=== PATIENT | female | born 1985 | race Caucasian/White ===

== ENCOUNTER 2023-06-01 13:30 | Emergency (ER) | payer OTHER ==
[2023-06-01 13:34] VITALS: TEMP 97.8
[2023-06-01] MEDS ORDERED: KETOROLAC 15 MG/ML 1 ML VIAL IVP STA (14:04)
[2023-06-01] MEDS ORDERED: SODIUM CHLORIDE 0.9% 1,000 ML IV STA (14:04)
--- NOTE | 2023-06-01 14:04 | ED ---
Headache HPI - General Chief Complaint: Headache Stated Complaint: headpain Time Seen by Provider: 06/01/23 13:42 Source: patient, RN notes reviewed, old records reviewed Mode of arrival: ambulatory Limitations: no limitations - History of Present Illness Initial Comments: 38-year-old female presents to the emergency room with complaints of a cyst to right latter-day for the past 2 months. Was seen by a doctor and told that she should have it removed by dermatology but has not followed up. She states she now has a frontal headache from it. Denies any fevers. No vision changes. MD Complaint: headache -: days(s) (3) Onset Description: gradual Location: frontal Severity scale (1-10): 8 Quality: aching Consistency: constant Context: other (cyst right latter-day for 2 months) Treatments Prior to Arrival: none - Related Data Home Medications Medication Instructions Recorded Confirmed Sertraline [Zoloft] 50 mg PO DAILY 08/03/14 11/15/14 Atomoxetine HCl [Strattera] 60 mg PO QAM 11/14/14 11/15/14 Previous Rx's Medication Instructions Recorded Acetaminophen-Codeine 300-30mg 2 tab PO Q6H PRN #20 tablet 11/15/14 [Tylenol w/codeine #3] Allergies Allergy/AdvReac Type Severity Reaction Status Date / Time No Known Allergies Allergy Verified 06/01/23 13:34 Review of Systems ROS Statement: Those systems with pertinent positive or pertinent negative responses have been documented in the HPI. ROS Other: All systems not noted in ROS Statement are negative. Past Medical History Past Medical History: No Reported History History of Any Multi-Drug Resistant Organisms: None Reported Past Surgical History: Appendectomy, Cholecystectomy, Orthopedic Surgery Additional Past Surgical History / Comment(s): left leg ORIF Past Anesthesia/Blood Transfusion Reactions: No Reported Reaction Past Psychological History: ADD/ADHD, Depression Smoking Status: Never smoker Past Alcohol Use History: Occasional Past Drug Use History: Marijuana General Exam Limitations: no limitations General appearance: alert, in no apparent distress Head exam: Present: atraumatic Eye exam: Present: normal appearance, PERRL, EOMI. Absent: scleral icterus, conjunctival injection, nystagmus ENT exam: Present: normal exam, mucous membranes moist Neck exam: Present: full ROM. Absent: tenderness, meningismus Respiratory exam: Absent: respiratory distress, accessory muscle use Cardiovascular Exam: Present: regular rate Extremities exam: Present: full ROM, normal capillary refill. Absent: te nderness, pedal edema Back exam: Present: full ROM Neurological exam: Present: alert, oriented X3, CN II-XII intact Expanded Patient oriented to: Present: person, place, time Speech: Present: fluid speech Cranial nerves: EOM's Intact: Normal, Gag Reflex: Normal, Tongue Deviation: Normal, Nystagmus: Normal Motor strength exam: RUE: 5, LUE: 5, RLE: 5, LLE: 5 Eye Response: (4) open spontaneously Motor Response: (6) obeys commands Verbal Response: (5) oriented Suha Total: 15 Psychiatric exam: Present: other (tearful) Skin exam: Present: warm, dry, normal color, other (cyst right temporal approx 1cm, no evidence of erythema or drainage, not fluctuant ). Absent: cyanosis, diaphoretic, petechiae, pallor Course Vital Signs 06/01/23 06/01/23 06/01/23 13:32 16:00 16:45 Temperature 97.8 F Pulse Rate 82 74 64 Respiratory 18 18 Rate Blood Pressure 175/101 214/142 221/121 O2 Sat by Pulse 98 Oximetry - Reevaluation(s) Reevaluation #1: Patient reassessment after IV fluids Toradol and Benadryl patient states that she is feeling worse. She does want a CT scan which was ordered. Patient was also given Decadron and Zofran for continued nausea. 06/01/23 15:29 Time: 15:29 Reevaluation #2: 06/01/23 16:27 Dr Delarosa radiologist called to state the patient has a subdural bleed with shift. Case discussed with Dr. Siegel and Dr. Vogel. Mannitol ordered. Repeat blood pressure elevated patient was given labetalol. Patient is alert and oriented. Continues to complain of nausea and frontal headache. Denies any trauma. Time: 16:27 Medical Decision Making - Medical Decision Making Was pt. sent in by a medical professional or institution (, PA, SIGNAL MECHANIC, urgent care, hospital, or assisted...) When possible be specific @ -[No] Did you speak to anyone other than the patient for history (EMS, parent, family, police, friend...)? What history was obtained from this source @ -[No] Did you review nursing and triage notes (agree or disagree)? Why? @ -[I reviewed and agree with nursing and triage notes] Were old charts reviewed (outside hosp., previous admission, EMS record, old EKG, old radiological studies, urgent care reports/EKG's, assisted records)? Report findings @ -[No old charts were reviewed] Differential Diagnosis (chest pain, altered mental status, abdominal pain women, abdominal pain men, vaginal bleeding, weakness, fever, dyspnea, syncope, hea dache, dizziness, GI bleed, back pain, seizure, CVA, palpatations, mental health, musculoskeletal)? @ -Differential Headache: Migraine, tension, cluster, carbon monoxide, central venous thrombosis, pension karma temporal arteritis, acute closure glaucoma, intercranial hemorrhage, mastoiditis, sinusitis, head injury, this is not meant to be an all-inclusive list. EKG interpreted by me (3pts min.). @ -n/a X-rays interpreted by me (1pt min.). @ -[None done] CT interpreted by me (1pt min.). @ -no U/S interpreted by me (1pt. min.). @ -[None done] What testing was considered but not performed or refused? (CT, X-rays, U/S, labs)? Why? @ -[None] What meds were considered but not given or refused? Why? @ -[None] Did you discuss the management of the patient with other professionals (professionals i.e. , PA, SIGNAL MECHANIC, lab, RT, psych nurse, social work lecturer, sports physician, teacher, patient transport officer, disability case manager)? Give summary @ -Case discussed with [facility] Was smoking cessation discussed for >3mins.? @ -[No] Was critical care preformed (if so, how long)? @ -yes Were there social determinants of health that impacted care today? How? (Homelessness, low income, unemployed, alcoholism, drug addiction, transpo rtation, low edu. Level, literacy, decrease access to med. care, [facility], rehab)? @ -[No] Was there de-escalation of care discussed even if they declined (Discuss DNR or withdrawal of care, Hospice)? DNR status @ -[No] What co-morbidities impacted this encounter? (DM, HTN, Smoking, COPD, CAD, Cancer, CVA, ARF, Chemo, Hep., AIDS, mental health diagnosis, sleep apnea, morbid obesity)? @ -[None] Was patient admitted / discharged? Hospital course, mention meds given and route, prescriptions, significant lab abnormalities, going to OR and other pertinent info. @ -Transfer [facility] emergency room 38-year-old female presents to the emergency room with complaints of a cyst to right latter-day for the past 2 months. Was seen by a doctor and told that she should have it removed by dermatology but has not followed up. She states she now has a frontal headache from it. Denies any fevers. No vision changes. CBC and electrolytes ESR and CRP are within normal limits. Upon arrival patient was given Toradol IV fluids and Benadryl for her headache. She had no resolution therefore Decadron and Zofran was given, CT was ordered. CT shows subdural bleed with midline shift. CT shows right acute subacute subdural hemorrhage. Proximally 6 mm leftward midline shift subfalcine herniation. Neurosurgical consultation recommended. Patient denies any trauma. She has no focal neurological deficits. NIH of 0 GCS of 15. Blood pressure remained elevated therefore labetalol was given. Case discussed with Dr. Vogel my ER attending who recommended mannitol and transfer to [facility]. Patient was advised of the results and agreeable to this plan of care. Case discussed with [facility] stroke team who recommended Cardene drip to systolic blood pressure 160. Patient transfer team nurse Martina at [facility] states patient accepted by Dr. Garces ER attending and Dr. Foley neurosurgeon notified of patient transfer. Undiagnosed new problem with uncertain prognosis? @ -[No] Drug Therapy requiring intensive monitoring for toxicity (Heparin, Nitro, Insulin, Cardizem)? @ -[No] Were any procedures done? @ -[No] Diagnosis/symptom? @ -Subdural hemorrhage Acute, or Chronic, or Acute on Chronic? @ -Acute Uncomplicated (without systemic symptoms) or Complicated (systemic symptoms)? @ -Complicated Side effects of treatment? @ -[No] Exacerbation, Progression, or Severe Exacerbation? @ -[No] Poses a threat to life or bodily function? How? (Chest pain, [place], VA, pneumonia, PE, COPD, DKA, ARF, appy, cholecystitis, CVA, Diverticulitis, Homicidal, Suicidal, threat to staff... and all critical care pts) @ -Yes intracranial bleed could result in - Lab Data Result diagrams: 06/01/23 14:15 06/01/23 14:15 Lab Results 06/01/23 06/01/23 06/01/23 Range/Units 14:15 14:15 16:25 WBC 8.4 (3.8-10.6) k/uL RBC 4.45 (3.80-5.40) m/uL Hgb 13.3 (11.4-16.0) gm/dL Hct 40.3 (34.0-46.0) % MCV 90.5 (80.0-100.0) fL MCH 29.8 (25.0-35.0) pg MCHC 32.9 (31.0-37.0) g/dL RDW 12.9 (11.5-15.5) % Plt Count 270 (150-450) k/uL MPV 7.3 Neutrophils % 75 % Lymphocytes % 16 % Monocytes % 7 % Eosinophils % 1 % Basophils % 0 % Neutrophils # 6.3 (1.3-7.7) k/uL Lymphocytes # 1.3 (1.0-4.8) k/uL Monocytes # 0.6 (0-1.0) k/uL Eosinophils # 0.1 (0-0.7) k/uL Basophils # 0.0 (0-0.2) k/uL ESR 8 (0-20) mm/hr PT 10.7 (9.0-12.0) sec INR 1.0 (<1.2) APTT 23.0 (22.0-30.0) sec Sodium 136 L (137-145) mmol/L Potassium 4.6 (3.5-5.1) mmol/L Chloride 102 (98-107) mmol/L Carbon Dioxide 20 L (22-30) mmol/L Anion Gap 14 mmol/L BUN 16 (7-17) mg/dL Creatinine 0.47 L (0.52-1.04) mg/dL Est GFR (CKD-EPI)AfAm >90 (>60 ml/min/1.73 sqM) Est GFR (CKD-EPI)NonAf >90 (>60 ml/min/1.73 sqM) Glucose 100 H (74-99) mg/dL Calcium 9.8 (8.4-10.2) mg/dL Total Bilirubin 0.6 (0.2-1.3) mg/dL AST 51 H (14-36) U/L ALT 59 H (4-34) U/L Alkaline Phosphatase 104 (38-126) U/L C-Reactive Protein 0.8 (<1.0) mg/dL Total Protein 8.0 (6.3-8.2) g/dL Albumin 4.8 (3.5-5.0) g/dL Critical Care Time Critical Care Time: Yes Total Critical Care Time: 35 Disposition Clinical Impression: Subdural hemorrhage, Hypertensive urgency Disposition: OTHER INSTITUTION NOT DEFINED Is patient prescribed a controlled substance at d/c from ED?: No Referrals: None,Stated [Primary Care Provider] - 1-2 days Getachew Jeronimo MD [STAFF PHYSICIAN] - 1-2 days Decision Date: 06/01/23 Decision Time: 16:29 - Out of Hospital Transfer - Req. Specs Out of Hospital Transfer - Requested Specifics: Other Emergency Center ([facility])
[2023-06-01] MEDS ORDERED: diphenhydrAMINE 50 MG/ML 1 ML VIAL IVP STA (14:05)
[2023-06-01 14:28] LABS: Basophils % (A) 0 %; Eosinophils # (A) 0.1 k/uL (0-0.7); Eosinophils % (A) 1 %; HCT 40.3 % (34.0-46.0); HGB 13.3 gm/dL (11.4-16.0); Lymphocytes # (A) 1.3 k/uL (1.0-4.8); Lymphocytes % (A) 16 %; MCH 29.8 pg (25.0-35.0); MCHC 32.9 g/dL (31.0-37.0); MCV 90.5 fL (80.0-100.0); Mean Platelet Volume 7.3; Monocytes # (A) 0.6 k/uL (0-1.0); Monocytes % (A) 7 %; Neutrophils # (A) 6.3 k/uL (1.3-7.7); Neutrophils % (A) 75 %; Platelet Count 270 k/uL (150-450); RBC 4.45 m/uL (3.80-5.40); RDW 12.9 % (11.5-15.5); WBC 8.4 k/uL (3.8-10.6)
[2023-06-01 14:40] LABS: ALT 59 U/L (4-34); AST 51 U/L (14-36); African American GFR (CKD) >90 (>60 ml/min/1.73 sqM); Albumin 4.8 g/dL (3.5-5.0); Alkaline Phosphatase 104 U/L (38-126); Anion Gap 14 mmol/L; Blood Urea Nitrogen 16 mg/dL (7-17); C Reactive Protein 0.8 mg/dL (<1.0); Calcium 9.8 mg/dL (8.4-10.2); Carbon Dioxide 20 mmol/L (22-30); Chloride 102 mmol/L (98-107); Glucose 100 mg/dL (74-99); Non-African American GFR(CKD) >90 (>60 ml/min/1.73 sqM); Potassium 4.6 mmol/L (3.5-5.1); Sodium 136 mmol/L (137-145); Total Bilirubin 0.6 mg/dL (0.2-1.3)
[2023-06-01 15:07] LABS: Erythrocyte Sedimentation Rate 8 mm/hr (0-20)
[2023-06-01] MEDS ORDERED: ONDANSETRON 4 MG/2 ML VIAL IVP STA (15:24)
[2023-06-01] MEDS ORDERED: DEXAMETHASONE SOD PHOSPHATE 10 MG/ML 1 ML VIAL IVP STA (15:25)
--- NOTE | 2023-06-01 16:17 | CT ---
EXAMINATION TYPE: CT brain wo con CT DLP: 1087.4 mGycm, Automated exposure control for dose reduction was used. DATE OF EXAM: 06/01/2023 3:51 PM COMPARISON: None. CLINICAL INDICATION:Female, 38 years old with history of headache frontal, headache TECHNIQUE: Brain: Axial CT images of the brain were obtained with coronal and sagittal reformats created and rev iewed. Contrast used: None. Oral contrast used: None. FINDINGS: Brain: Extra-axial spaces: There is a high density fluid collection over the convexity of the right cerebrum measuring up to 8 mm in thickness. There is mass effect upon the adjacent cerebrum. Ventricular system: Within normal limits Cerebral parenchyma: No acute intraparenchymal hemorrhage. The putnam-white junction is well different iated. Cerebellum: Unremarkable. Mass effect: Leftward 6 mm of midline shift. Intracranial vasculature: unremarkable Soft tissues: Right cheek/temporal bone cyst measuring up to 9 mm. Calvarium/osseous structures: No depressed skull fracture. Paranasal sinuses and mastoid air cells: Mild scattered paranasal sinus disease. Visualized orbits: Orbital contents are intact. IMPRESSION: 1. Right acute/subacute subdural hemorrhage. There is approximately 6 mm leftward midline shift subf alcine herniation. Neurosurgical consultation recommended. 2. Right cheek probable sebaceous cyst. Findings communicated to Dr. Nicanor Esteves NPC on 06/01/2023 4:[address] Mj Delarosa.
[2023-06-01] MEDS ORDERED: LABETALOL 5 MG/ML VIAL MDV IVP STA (16:20)
[2023-06-01] MEDS ORDERED: SALINE IV ONE (16:21)
[2023-06-01] MEDS ORDERED: MANNITOL 20% IV ONE (16:21)
[2023-06-01] MEDS ORDERED: droPERidol 5 MG/2 ML VIAL IVP ONE (16:27)
[2023-06-01] MEDS ORDERED: niCARdipine 20 MG in SODIUM CHLORIDE 0.9% 192 ML IV SCH (17:00)
[2023-06-01 17:08] LABS: Prothrombin Time 10.7 sec (9.0-12.0)
[2023-06-01 17:53] VITALS: BP 166/102; PULSE 89; RESP 20
== END 2023-06-01 17:51 | disposition other institution (70) ==
LOC: EC 13:30
DX: I62.00 Nontraumatic subdural hemorrhage, unspecified (principal); I16.0 Hypertensive urgency; F12.90 Cannabis use, unspecified, uncomplicated; F32.A Depression, unspecified; Z79.899 Other long term (current) drug therapy
CPT/HCPCS: 36415; 80053; 85652; 85025; 85610; 85730; 86140; 70450; 96365; 96367; 96375 ×4; 96361; 99291; J1200; J1100; J2405; J1885